=== PATIENT | male | born 1945 | race Two or more races ===

== ENCOUNTER 2016-11-06 19:11 | Emergency (ER) | payer MEDICARE ==
[~2016-11-06] VITALS: Ht 172.7 cm; Wt 97.3 kg
[2016-11-06] MEDS ORDERED: TERA10CA3 PO (19:33)
[2016-11-06] MEDS ORDERED: LISI5TAB7 PO (19:33)
[2016-11-06] MEDS ORDERED: SIMV20TA3 PO (19:33)
[2016-11-06] MEDS ORDERED: METF500T4 PO (19:33)
[2016-11-06] MEDS ORDERED: ASPI-496 PO (19:33)
[2016-11-06 20:45] VITALS: BP 119/62
== END 2016-11-06 20:46 | disposition home or self-care (01) ==
LOC: ED 20:40
DX: H53.122 Transient visual loss, left eye (principal); E11.9 Type 2 diabetes mellitus without complications; Z98.890 Other specified postprocedural states
CPT/HCPCS: 99281; 99282

== ENCOUNTER 2018-07-29 17:55 | Emergency (ER) | payer MEDICARE ==
[~2018-07-29] VITALS: Ht 172.7 cm; Wt 90.0 kg
[~2018-07-29 17:55] MED LIST: ASPI-496 PO; LISI5TAB7 PO; METF500T17 PO; SIMV20TA3 PO; TERA10CA3 PO
[2018-07-29 18:42] LABS: BASOPHILS # (AUTO) 0.02 x10^3/uL (0-0.1); BASOPHILS % (AUTO) 0 % (0-1); EOSINOPHILS # (AUTO) 0.24 x10^3/uL (0-0.4); EOSINOPHILS % (AUTO) 4 % (1-7); LYMPHOCYTES # (AUTO) 1.64 x10^3/uL (1-3.4); LYMPHOCYTES % (AUTO) 28 % (22-44); MD NO; MEAN CORPUSCULAR HEMOGLOBIN 32.9 pg (27.5-34.5); MEAN CORPUSCULAR HGB CONC 33.7 g/dL (33.2-36.2); MEAN CORPUSCULAR VOLUME 97.6 fL (81-97); MEAN PLATELET VOLUME 7.7 fL (7.4-10.4); MONOCYTES # (AUTO) 0.49 x10^3/uL (0.2-0.8); MONOCYTES % (AUTO) 8 % (2-9); NEUTROPHILS # (AUTO) 3.55 x10^3/uL (1.8-6.8); NEUTROPHILS % (AUTO) 60 % (42-75); PLATELET COUNT 231 x10^3/uL (130-400); RED BLOOD COUNT 3.87 x10^6/uL (4.38-5.82); RED CELL DISTRIBUTION WIDTH 12.5 % (9.4-14.8)
[2018-07-29 18:55] LABS: ALBUMIN 3.9 g/dL (3.4-5.0); ANION GAP 4 mmol/L (5-15); CALCIUM 9.1 mg/dL (8.5-10.1); CHLORIDE 111 mmol/L (98-107)
[2018-07-29 18:59] LABS: ALANINE AMINOTRANSFERASE 21 U/L (12-78); ALKALINE PHOSPHATASE 98 U/L (45-117); BILIRUBIN,TOTAL 0.3 mg/dL (0.2-1.0); CREATININE 1.23 mg/dL (0.7-1.3); TOTAL PROTEIN 7.1 g/dL (6.4-8.2)
--- NOTE | 2018-07-29 20:14 | NUR ---
pt to room from lobby
--- NOTE | 2018-07-29 20:25 | NUR ---
Assumed care of pt. Pt presents to ED with c/o BRENNAN with some dizzyness over last 10 days. Denies hx of BRENNAN. NAD noted at this time. Breathing regular and unlabored. Pt placed on cont. pulse ox and bp. POC discussed. Awaiting further eval and orders. Will continue to monitor.
--- NOTE | 2018-07-29 21:39 | NUR ---
IV STARTED BY LAMAR MACHADO. PT TO CT VIA [facility].
[2018-07-29] MEDS ORDERED: OMNIPAQUE 350 MG/ML, 100ML BOTTLE ONE (22:06)
--- NOTE | 2018-07-29 22:12 | NUR ---
REPORT FROM LAMAR FIGUEROA
--- NOTE | 2018-07-29 22:14 | NUR ---
PT RESTING ON GURNEY, NAD, AWAKE/ALERT. PT DENIES PAIN, REPORTS "HEART BEAT SOUND" IN HEAD. BP/SPO2 MONITORS IN PLACE. A&OX4; FACE SYMMETRICAL; SPEECH CLEAR; +STRENGTH X 4. CHART UP FOR RECHECK. PT UPDATED TO POC (RECHECK/DISPO) AND DEMONSTRATES UNDERSTANDING.
[2018-07-29 22:15] VITALS: BP 130/60
--- NOTE | 2018-07-29 22:16 | NUR ---
REPORT TO LAMAR MACHADO.
--- NOTE | 2018-07-29 23:11 | NUR ---
DC EDUCATION PROVIDED, PT DEMONSTRATES UNDERSTANDING. PT AMBULATED STEADILY TO DC WITH RN
== END 2018-07-29 23:13 | disposition home or self-care (01) ==
LOC: ED 21:50
DX: R51 Headache (principal); E78.00 Pure hypercholesterolemia, unspecified; E11.9 Type 2 diabetes mellitus without complications; I10 Essential (primary) hypertension
CPT/HCPCS: 36415; 70450; 70496; 80053; 85025; 93005; 99284; Q9967

== ENCOUNTER 2018-09-14 18:50 | Emergency (ER) | payer MEDICARE ==
[~2018-09-14] VITALS: Ht 172.7 cm; Wt 84.1 kg
[2018-09-14 19:03] VITALS: BP 143/66
--- NOTE | 2018-09-14 19:59 | NUR ---
JIMMY ZULETA, AT BEDSIDE TO EVALUATE PT.
== END 2018-09-14 21:04 | disposition home or self-care (01) ==
LOC: ED 20:30
DX: H11.31 Conjunctival hemorrhage, right eye (principal); I10 Essential (primary) hypertension; E78.00 Pure hypercholesterolemia, unspecified; E11.9 Type 2 diabetes mellitus without complications
CPT/HCPCS: 99282

== ENCOUNTER 2021-02-14 21:45 | Emergency (ER) | payer MEDICARE ==
[~2021-02-14] VITALS: Ht 172.7 cm; Wt 90.1 kg
[~2021-02-14 21:45] MED LIST changes: +SIMV20TA19 PO; -SIMV20TA3 PO
--- NOTE | 2021-02-15 00:09 | NUR ---
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
--- NOTE | 2021-02-15 00:19 | NUR ---
Break RN: first contact with patient. Patient presents to ER c/o runny nose since last night with a slight sore throat. Patient states sometimes he has a cough. Fever of 100.7 at home. Taken sudafed which helped the runny nose. No tylenol or ibuprofen. +COVID vaccine. Patient states he has SOB which started "now." Patient is in NAD. Respirations even and unlabored. No cough noted.
[2021-02-15] MEDS ORDERED: BENZONATATE 100 MG CAPSULE ONE (00:44)
[2021-02-15] MEDS ORDERED: ACETAMINOPHEN 500 MG TABLET ONE (00:44)
[2021-02-15 01:00] VITALS: BP 112/59
[2021-02-15] MEDS ORDERED: ACETAMINOPHEN 500 MG TABLET PO ONE (01:00)
[2021-02-15] MEDS ORDERED: BENZONATATE 100 MG CAPSULE PO ONE (01:00)
[2021-02-15 01:22] LABS: BASOPHILS % (AUTO) 0 % (0-1); EOSINOPHILS % (AUTO) 1 % (1-7); LYMPHOCYTES % (AUTO) 11 % (22-44); MEAN CORPUSCULAR HEMOGLOBIN 33.2 pg (27.5-34.5); MEAN CORPUSCULAR HGB CONC 34.4 g/dL (33.2-36.2); MEAN PLATELET VOLUME 7.7 fL (7.4-10.4); MONOCYTES % (AUTO) 12 % (2-9); NEUTROPHILS % (AUTO) 75 % (42-75); PLATELET COUNT 220 x10^3/uL (130-400); RED BLOOD COUNT 3.77 x10^6/uL (4.38-5.82)
--- NOTE | 2021-02-15 01:28 | NUR ---
RIKI SWAB WALKED TO LAB BY THIS RN.
[2021-02-15 01:32] LABS: ALBUMIN 3.7 g/dL (3.4-5.0); ANION GAP 4 mmol/L (5-15); CALCIUM 8.7 mg/dL (8.5-10.1); CHLORIDE 109 mmol/L (98-107); CREATININE 1.34 mg/dL (0.7-1.3)
[2021-02-15 01:36] LABS: TROPONIN I < 0.015 ng/mL (0.000-0.045)
--- NOTE | 2021-02-15 02:51 | NUR ---
Patient given discharge instructions and they have confirmed that they understand the instructions. Patient ambulatory with steady gait. NAD, all questions answered appropriately, denies additional needs at this time. No personal belongings left in room after discharge.
== END 2021-02-15 02:52 | disposition home or self-care (01) ==
LOC: ED 02-15 02:46
DX: J18.9 Pneumonia, unspecified organism (principal); Z20.822 Contact with and (suspected) exposure to COVID-19; R00.0 Tachycardia, unspecified; E11.9 Type 2 diabetes mellitus without complications; I10 Essential (primary) hypertension; E78.00 Pure hypercholesterolemia, unspecified
CPT/HCPCS: 36415; 71045; 80048; 82040; 83605; 84484; 85025; 87040; 99284; U0003; U0005; 99285